=== PATIENT | female | born 1950 | race Caucasian/White ===

== ENCOUNTER 2016-10-05 20:07 | Emergency (ER) | payer OTHER ==
[2016-10-05 20:51] LABS: ABSOLUTE NEUTROPHIL COUNT 8.5 K/mm3 (1.8-7.7); BASO % 0.2 % (0.2-1.0); EOS # 0.3 (0.0-0.5); EOS % 2.1 % (0.9-2.9); HEMATOCRIT 32.8 % (37.0-47.0); HEMOGLOBIN 10.8 gm/l (12.0-16.0); IMM NEUT # 0.1 K/mm3 (0-0.2); IMM NEUT% 0.9 % (0-1); LYMPH % 16.6 % (15-45); MEAN CELL VOLUME 88.9 fl (81.0-99.0); MEAN CORPUSCULAR HEMOGLOBIN 29.3 pg (27.0-31.0); MEAN CORPUSCULAR HGB CONC 32.9 g/dl (33.0-37.0); MEAN PLATELET VOLUME 11.6 fl (7.4-10.4); MONO # 0.9 (0.0-0.8); MONO % 7.3 % (4-12); NEUT % 72.9 % (43-75); PLATELET COUNT 201 K/mm3 (130-400); RED CELL DISTRIBUTION WIDTH 13.2 % (11.5-14.5)
[2016-10-05] MEDS ORDERED: ONDANSETRON 4 MG/2ML 2 ML VIAL ONE (20:55)
[2016-10-05] MEDS ORDERED: HYDROMORPHONE HCL 1 MG/ML SYRINGE ONE (20:55)
[2016-10-05] MEDS ORDERED: SODIUM CHLORIDE 0.9% 1,000 ML ONE (20:55)
[2016-10-05 21:04] LABS: ALBUMIN 3.5 gm/dL (3.5-5.7); CALCIUM 9.1 mg/dL (8.6-10.3)
--- NOTE | 2016-10-06 08:01 | RAD ---
EXAMINATION:CHEST - 2 VIEWS CLINICAL INDICATION: Chest pain for one day. COMPARISON:none FINDINGS: Heart size is normal. There is mild aortic ectasia. There is no adenopathy identified. There is no pleural effusion. There are prominent bronchovascular markings. These are increased significantly in conspicuity in comparison to the prior exam. Patchy nodular opacities are noted in the upper lung zones as well. The osseous structures are unremarkable for age. IMPRESSION: Increasing patchy/nodular opacities in the upper lung zones. Findings may reflect infectious etiology however neoplastic process cannot be excluded. CT scan of the thorax may be helpful in this instance.
== END 2016-10-05 23:45 | disposition short-term general hospital (02) ==
LOC: ED 20:07
DX: R10.13 Epigastric pain (principal); R79.89 Other specified abnormal findings of blood chemistry; E11.9 Type 2 diabetes mellitus without complications; G25.81 Restless legs syndrome; Z79.899 Other long term (current) drug therapy; Z79.82 Long term (current) use of aspirin
CPT/HCPCS: 83690 ×2; 85025; 80053; 84484; 71020; 96375; 99285 ×2; 96374; 93005; J1170; J2405; J7030